=== PATIENT | female | born 1965 | race Caucasian/White ===

== ENCOUNTER 2020-12-29 18:36 | Outpatient (CLI) | payer MEDICARE, MEDICAID, SELFPAY ==
[2020-12-29 19:36] LABS: NT Pro B Type Natriuretic Pept 105 pg/mL (0-125)
== END 2020-12-29 18:37 | disposition home or self-care (01) ==
PROVIDERS: PCP Family Medicine; Visit Provider Nurse Practitioner
DX: R06.00 Dyspnea, unspecified (principal)
CPT/HCPCS: 36415; 83880

== ENCOUNTER → 2021-03-16 12:54 | Outpatient (BNVA) | payer MEDICARE, MEDICAID, SELFPAY | PROVIDERS: PCP Family Medicine; Visit Provider Specialist | DX: R20.0 Anesthesia of skin (principal); R20.2 Paresthesia of skin; M79.621 Pain in right upper arm; F17.200 Nicotine dependence, unspecified, uncomplicated | CPT/HCPCS: 95908 ==

== ENCOUNTER → 2021-04-05 14:56 | Outpatient (BNVA) | payer MEDICARE, MEDICAID, SELFPAY | PROVIDERS: PCP Family Medicine; Referring Provider Family Medicine; Visit Provider Orthopaedic Surgery | DX: R52 Pain, unspecified (principal); M75.21 Bicipital tendinitis, right shoulder | CPT/HCPCS: 73080 ==

== ENCOUNTER 2021-06-06 07:52 | Outpatient (CLI) | payer MEDICARE, MEDICAID, SELFPAY ==
--- NOTE | 2021-06-06 07:58 | MR_ITS ---
WS: [id number] MRI RIGHT ELBOW WITHOUT GADOLINIUM ENHANCEMENT. INDICATION: Pain in elbow. Burning sensation. TECHNIQUE: Coronal T1 PD and STIR imaging. Sagittal PD imaging. Axial T1 and T2 and 3-D FSPGR FINDINGS: Normal anatomic alignment. No acute fractures. Normal radial head and neck. No significant joint effusion. Distal biceps tendon is intact. Increased T2 signal abnormality in the distal biceps tendon at the radial tuberosity consistent with tendinopathy. Normal common flexor and common extenso r tendon complexes. Normal collateral ligaments. No other significant findings. MR/MR elbow RT wo con* [id number] IMPRESSION: 1. Normal anatomic alignment. No acute fractures. No significant joint effusio n. 2. Tendinopathy within distal biceps tendon with increased T2 signal abnormali ty distally at the radial tuberosity. Biceps tendon appears intact. 3. Common extensor and common flexor tendon origins appear intact. Normal richard ateral ligaments. 4. No other significant findings.
== END 2021-06-06 07:53 | disposition home or self-care (01) ==
LOC: RADSHAW 07:57
PROVIDERS: PCP Family Medicine; Visit Provider Orthopaedic Surgery
DX: M75.21 Bicipital tendinitis, right shoulder (principal)
CPT/HCPCS: 73221

== ENCOUNTER 2022-06-29 12:12 | Outpatient (CLI) | payer MEDICARE, MEDICAID, SELFPAY ==
--- NOTE | 2022-06-29 | USCV_ITS ---
Mercy Fermin Age: 56 Gender: F : 1965 Exam Date: 06/29/2022 12:41 Ordering Phys: Mark Anthony Akbar MD Technologist: Dean Banks [place]am [place] [facility] [place]ication: DYSPNEA ON MINIMAL EXERTION BP: 140 / 90 HR: 78 Rhythm: Sinus Technical Quality: Technically difficult study MEASUREMENTS (Male / Female) Normal Values 2D ECHO LV Diastolic Diameter PLAX 3.9 cm 4.2 - 5.9 / 3.9 - 5.3 cm LV Systolic Diameter PLAX 2.4 cm IVS Diastolic Thickness 0.8 cm 0.6 - 1.0 / 0.6 - 0.9 cm IVS Systolic Thickness 1.4 cm LVPW Diastolic Thickness 1.3 cm 0.6 - 1.0 / 0.6 - 0.9 cm LVPW Systolic Thickness 1.3 cm LVOT Diameter 2.0 cm LV Ejection Fraction 2D Teich 69.1 % LV Ejection Fraction MOD 2C 67.2 % LV Ejection Fraction 2C AL 73.7 % LA Diameter 3.1 cm LA Width 2.5 cm LA Height 3.8 cm RA Width 3.0 cm RA Height 4.0 cm Aorta at Sinotubular Diameter 2.5 cm IVC Diameter 1.4 cm M-MODE Aortic Annulus Diameter 2.9 cm LA Ao Ratio MM 1.1 MV E Point Septal Separation 0.6 cm DOPPLER AV Peak Velocity 97.3 cm/s LVOT Peak Velocity 91.0 cm/s AV Area Cont Eq vti 2.9 cm squared AV Area Cont Eq pk 3.0 cm squared MV Peak Velocity 94.0 cm/s MV Area PHT 3.9 cm squared Mitral E to A Ratio 0.8 MV E' Velocity 36.5 cm/s Mitral E to MV E' Ratio 12.9 Mitral E to LV E' Lateral Ratio 13.7 Mitral E to LV E' Septal Ratio 12.2 Right Atrial Pressure 3.0 mmHg PV Peak Velocity 56.0 cm/s RV Acceleration Time 0.1 s RV Ejection Time 0.3 s RV AcT/ET 0.4 FINDINGS Left Ventricle Normal left ventricular size and systolic function, EF 65 %. No regional wall motion abnormalities. Grade I/IV diastolic dysfunction (abnormal relaxation filling pattern), normal to mildly elevated filling pressures. Mild left ventricular hypertrophy. Right Ventricle The right ventricle is normal in size and function. Right Atrium The right atrium is normal in size. Left Atrium The left atrium is normal in size. Mitral Valve No gross abnormalities noted Aortic Valve No gross abnormalities noted Tricuspid Valve No gross abnormalities noted Pulmonic Valve Pulmonic valve not well visualized. Pericardium Normal pericardium without effusion. Aorta Normal aortic annulus size. IVC Normal inferior vena cava. CONCLUSIONS Normal left ventricular size and systolic function, EF 65 %. No regional wall motion abnormalities. Grade I/IV diastolic dysfunction (abnormal relaxation filling pattern), normal to mildly elevated filling pressures. Mild left ventricular hypertrophy. Normal cardiac chamber sizes There is no pericardial effusion. There are no intracardiac masses. Technically difficult study because of the poor ultrasonic window. No similar previous studies are available for comparison Dr Sergio Michel MD FAC (Electronically Signed) Final Date: 30 June 2022 20:33 S
== END 2022-06-29 12:13 | disposition home or self-care (01) ==
LOC: RAD 12:13
PROVIDERS: PCP Family Medicine; Visit Provider Family Medicine
DX: R06.09 Other forms of dyspnea (principal)
CPT/HCPCS: 93306

== ENCOUNTER → 2022-08-16 15:20 | Outpatient (BNVA) | payer MEDICARE, MEDICAID, SELFPAY | PROVIDERS: PCP Family Medicine; Visit Provider Internal Medicine Pulmonary Disease | DX: J44.9 Chronic obstructive pulmonary disease, unspecified; R06.09 Other forms of dyspnea; R06.02 Shortness of breath; F17.210 Nicotine dependence, cigarettes, uncomplicated; Z71.6 Tobacco abuse counseling | CPT/HCPCS: 36415; 82785; 85025; 86003; 99204 ==

== ENCOUNTER 2022-08-31 01:00 | Outpatient (CLI) | payer MEDICARE, MEDICAID, SELFPAY | END 2022-08-31 23:00 | disposition home or self-care (01) | LOC: RT 09-19 19:30 | PROVIDERS: PCP Family Medicine; Visit Provider Internal Medicine Pulmonary Disease | DX: J45.909 Unspecified asthma, uncomplicated (principal); R06.09 Other forms of dyspnea | CPT/HCPCS: 94060; 94618; 94729 ==

== ENCOUNTER 2022-08-31 08:33 | Outpatient (CLI) | payer MEDICARE, MEDICAID, SELFPAY ==
--- NOTE | 2022-08-31 09:45 | CT_ITS ---
WS: [id number] LDCT LUNG CANCER SCREENING TECHNIQUE: Noncontrast CT of the chest with coronal and sagittal reformatted images. CLINICAL INFORMATION: lung screening COMPARISON: None. DLP: 73.50 mGy.cm DIvol: Mean CTDIvol: 1.60 (mGy) All CT scans at [facility] use at least one of these dose optimization techniques: automat ed exposure control; mA and/or kV adjustment per patient size (includes targeted exams where dose is matched to clinical indication); or iterative reconstruction. FINDINGS: Normal caliber thoracic aorta. No mediastinal or hilar lymphadenopathy. No axillary lymphadenopathy. Cholelithiasis. Adrenal glands are normal. Normal GE junction. Small subpleural nodule RIGHT lower lobe medially measuring [address]/CT lung screening [id number] IMPRESSION: LUNG-RADS: 2-Benign Appearance or Behavior FOLLOW UP: 12 Month: Continue annual screening with LDCT
== END 2022-08-31 08:34 | disposition home or self-care (01) ==
LOC: RT 08:34
PROVIDERS: PCP Family Medicine; Visit Provider Internal Medicine Pulmonary Disease
DX: F17.210 Nicotine dependence, cigarettes, uncomplicated (principal); J44.9 Chronic obstructive pulmonary disease, unspecified
CPT/HCPCS: 71271; 94618; J7613

== ENCOUNTER → 2022-10-23 11:32 | Outpatient (BNVA) | payer MEDICARE, MEDICAID, SELFPAY | PROVIDERS: PCP Family Medicine; Visit Provider Internal Medicine Pulmonary Disease | DX: J45.909 Unspecified asthma, uncomplicated (principal); J44.9 Chronic obstructive pulmonary disease, unspecified; Z71.6 Tobacco abuse counseling; F17.210 Nicotine dependence, cigarettes, uncomplicated | CPT/HCPCS: 99214 ==

== ENCOUNTER 2022-11-13 11:30 | Outpatient (CLI) | payer MEDICARE, MEDICAID, SELFPAY | END 2022-11-13 11:31 | disposition home or self-care (01) | LOC: SLEEP 11-14 17:10 | PROVIDERS: PCP Family Medicine; Visit Provider Internal Medicine Pulmonary Disease | DX: G47.33 Obstructive sleep apnea (adult) (pediatric) (principal) | CPT/HCPCS: 94762 ==

== ENCOUNTER 2023-08-28 13:55 | Inpatient (IN) | payer MEDICARE, MEDICAID, SELFPAY ==
[2023-08-28] VITALS (7 sets, daily range): BP systolic 129–155; BP diastolic 71–90; PULSE 87–115; RESP 16–22; TEMP 36.6–38.5; O2SAT 87–96; BMI 37.8
--- NOTE | 2023-08-28 14:19 | XRR_ITS ---
PROCEDURE INFORMATION: Exam: XR Chest Exam date and time: 08/28/2023 2:43 PM Age: 57 years old Clinical indication: Cough and fever and shortness of breath; Additional info: Cough, fever, SOB TECHNIQUE: Imaging protocol: Radiologic exam of the chest. Views: 1 view. COMPARISON: CT lung screening [id number] 08/31/2022 9:24 AM FINDINGS: Lungs: See Heart/Mediastinum finding. Pleural spaces: Unremarkable. No pleural effusion. No pneumothorax. Heart/Mediastinum: Heart appears mildly enlarged on this single view chest exam. There is interval development of ill-defined patchy infiltrate right lower lobe likely secondary to pneumonia. Left lung field remains aerated and clear. Bones/joints: Unremarkable for age. XR/XR chest 1V portable [id number] IMPRESSION: Mild cardiomegaly with patchy right lower lobe infiltrate likely secondary to pneumonia.
--- NOTE | 2023-08-28 14:19 | ECG_ITS ---
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 Measurements Intervals [place] Rate: 111 P: 65 [place]: 155 QRS: 68 QRSD: 92 T: 68 QT: 293 QTc: 399 Interpretive Statements SINUS TACHYCARDIA ABNORMAL RHYTHM ECG No previous ECG available for comparison Electronically Signed On 08-28-2023 21:42:36 PI[employer]O [employer]CH[employer] by Sergio Michel M.D. [email or web address]
--- NOTE | 2023-08-28 14:31 | ED_ITS ---
HPI - SOB/Dyspnea 2 General: Chief Complaint: Shortness of Breath/Dyspnea Stated Complaint: fever, unable to urinate, abd/back pain SOB Time Seen by Provider: 08/28/23 14:17 History of Present Illness: HPI Narrative: 57-year-old female presents the emergenc y department complaining of fever, shortness of breath, wheezing, runny nose, congestion, headache, body aches, lack of appetite, dehydration, lightheadedness with standing. Patient is a longtime smoker with a history of asthma; she is supposed to be on Trelegy and albuterol but states she is out of both of them. Patient reports subjective fever but has not measured. On arrival her temperature was 97.8 degrees but she had just been sucking on an ice cube. I rechecked her temperature axillary because she felt very warm and it was 101.3 degrees. Patient denies any GI symptoms, urinary symptoms, rashes. Associated symptoms: Deny abdominal pain, chest pain, extremity pain, nausea, syncope or vomiting Review of Systems 2 General: Reports: 10 or more systems reviewed and unremarkable except in HPI and below Eyes: Denies: change in vision ENMT: Denies: throat pain Card: Denies: chest pain, edema or syncope GI: Denies: abdominal pain, nausea, vomiting or diarrhea : Denies: flank pain, dysuria or urinary frequency Musc: Denies: neck pain, back pain, extremity pain or extremity swelling Skin/Breast: Denies: rash or erythema Neuro: Denies: headache(s), numbness in extremities, weakness in extremities or lack of coordination PFSH ED 2 PFSH: Medical History (Updated 08/28/23 @ 17:15 by Boris Solis MD) Smoker COPD (chronic obstructive pulmonary disease) Asthma Biceps tendinitis of right upper extremity Numbness and tingling in right hand Surgical History (Updated 08/28/23 @ 17:10 by Ruy Villafuerte MD) H/O: hysterectomy Hx of tonsillectomy Social History Smoking and tobacco/nicotine status: current every day tobacco/nicotine user cigarettes Packs smoked per day: 1.5 Years cigarettes smoked: 35 [ Other cigarette details: Started at age 21] Physical Exam 2 Const: COMMON NORMALS: no limitations, alert and well nourished EXAM LIMITATIONS: no altered mental status HENMT: COMMON NORMALS: normocephalic, atraumatic and external ears normal H EAD & SCALP: normocephalic and atraumatic EXTERNAL EAR: Yes external ears normal MOUTH: no muffled voice OTHER: Nasal congestion and rhinorrhea Eye: COMMON NORMALS: EOMs intact bilaterally, conjunctivae normal and no scleral icterus CONJUNCTIVA: Yes conjunctivae normal Neck/C-Spine: COMMON NORMALS: no JVD GENERAL: Yes normal visual inspection and Yes trachea midline Resp: OTHER: Mild tachypnea, wheezes, few rales Cardio: COMMON NORMALS: no JVD and regular rhythm RATE: tachycardic R HYTHM: regular rhythm GI: COMMON NORMALS: Soft to palpation and non-tender PALPATION: Yes Soft to palpation and No Guarding due to palpation present (GI) Extremity: COMMON NORMALS: normal to inspection Neuro: COMMON NORMALS: moves all extremities, no focal motor deficits and no sensory deficits noted SENSORIUM/ORIENTATION: Yes alert SPEECH: speech normal Psych: COMMON NORMALS: mental status grossly normal, Normal thought process present, cooperative, normal affect and speech normal SPEECH: Yes normal speech THOUGHT PROCESS: Normal thought process present Skin: COMMON NORMALS: turgor normal and no jaundice GENERAL SKIN EXAM: t urgor normal OTHER: Small abrasion on her chin. No signs of infection. No rashes. Skin is warm to the touch Course 2 Vital Signs: Vital signs: Vital Signs Temperature 100.0 F H 08/28/23 16:32 Pulse Rate 95 08/28/23 16:32 Respiratory Rate 16 08/28/23 16:32 Blood Pressure 149/71 08/28/23 16:32 Pulse Oximetry 87 L 08/28/23 16:54 Oxygen Delivery Me thod Nasal Cannula 08/28/23 16:32 Oxygen Flow Rate 2 08/28/23 16:54 MDM - SOB/Dyspnea Medical Decision Making Patient presents with acute febrile respiratory illness. She does have multiple sick contacts. She has lost her taste. Considerations include bacterial versus viral etiology. Less likely fungal. The patient is out of her bronchodilators. I may give her medication for her fever, IV fluids, DuoNeb, methylprednisolone, and send a respiratory panel. Patient is supposed to be on 2 L of oxygen at all times but does not use it and never has. She says that she does not ever remember qualifying for it. According to the chart, she did a 6-minute walk test and qualified for 2 L/min. UPDATE: Enterovirus positive (cause vs incidental?) RLL infiltrate WBC quite elevated Patient dropped to 83% while I was in room. She needs oxygen supplementation. Right now she needs 3LPM She isn't wearing any oxygen at home (though see note above about past qualification). Put on rocephin/doxy for admission. Discussed with Dr Barker for admission. Lab Data 08/28/23 15:10 08/28/23 15:10 Labs/Radiology: Radiology Impressions Chest X-Ray 08/28/23 14:19 IMPRESSION: Mild cardiomegaly with patchy right lower lobe infiltrate likely secondary to pneumonia. Laboratory Results WBC 16.84 10^3/uL (3.29-11.43) H 08/28/23 15:10 RBC 5.24 10^6/uL (3.85-5.65) 08/28/23 15:10 Hgb 15.70 g/dL (11.27-16.99) 08/28/23 15:10 Hct 48.3 % (36-47) H 08/28/23 15:10 MCV 92.2 fl (85-98) 08/28/23 15:10 MCH 30.0 pg (27-33) 08/28/23 15:10 MCHC 32.5 g/dL (30-55) 08/28/23 15:10 RDW 12.4 % (12.1-15.1) 08/28/23 15:10 Plt Count 251 10^3/cmm (157-399) 08/28/23 15:10 MPV 9.9 fL (7.4-10.4) 08/28/23 15:10 Neut % (Auto) 80.9 % 08/28/23 15:10 Lymph % (Auto) 13.2 % 08/28/23 15:10 [place] % (Auto) 5.2 % 08/28/23 15:10 Eos % (Auto) 0.1 % 08/28/23 15:10 Baso % (Auto) 0.3 % 08/28/23 15:10 Neut # (Auto) 13.63 10^3/uL (1.8-7.7) H 08/28/23 15:10 Lymph # (Auto) 2.2 10^3/uL (0.8-4.8) 08/28/23 15:10 [place] # (Auto) 0.9 10^3/uL (0.2-0.9) 08/28/23 15:10 Eos # (Auto) 0.0 10^3/uL (0.0-0.8) 08/28/23 15:10 Baso # (Auto) 0.1 10^3/uL (0.0-0.1) 08/28/23 15:10 Nucleated RBC % (auto) 0 % 08/28/23 15:10 Nucleated RBCs # 0.0 /100WBC 08/28/23 15:10 Sodium 132 mmol/L (136-145) L 08/28/23 15:10 Potassium 4.2 mmol/L (3.5-5.1) 08/28/23 15:10 Chloride 96 mmol/L (98-107) L 08/28/23 15:10 Carbon Dioxide 26 mmol/L (22-29) 08/28/23 15:10 Anion Gap 14.2 (5-19) 08/28/23 15:10 BUN 10 mg/dL (6-20) 08/28/23 15:10 Creatinine 0.8 mg/dL (0.5-0.9) 08/28/23 15:10 GFR Calculation 74.2 mL/min (90-130) L 08/28/23 15:10 Glucose 124 mg/dL (65-115) H 08/28/23 15:10 Calculated Osmolality 274 mOsm/kg (285-295) L 08/28/23 15:10 Lactic Acid 0.9 mmol/L (0.5-2.2) 08/28/23 15:10 Calcium 9.5 mg/dL (8.5-10.5) 08/28/23 15:10 Magnesium 1.9 mg/dL (1.7-2.3) 08/28/23 15:10 Total Bilirubin 1.2 mg/dL (0.15-1.2) 08/28/23 15:10 AST 35 U/L (0-32) H 08/28/23 15:10 ALT 37 U/L (0-33) H 08/28/23 15:10 Alkaline Phosphatase 138 U/L (35-105) H 08/28/23 15:10 Total Protein 7.8 g/dL (6.6-8.7) 08/28/23 15:10 Albumin 3.5 g/dL (3.5-5.2) 08/28/23 15:10 Globulin 4.3 g/dL (1.3-4.6) 08/28/23 15:10 Adenovirus (PCR) Not detected (NOT DETECT) 08/28/23 14:45 C. pneumoniae DNA (PCR) Not detected (NOT DETECT) 08/28/23 14:45 Coronavirus 229E (PCR) Not detected (NOT DETECT) 08/28/23 14:45 Human Metapneumovir PCR Not detected (NOT DETECT) 08/28/23 14:45 Influenza A (H1) PCR Not detected (NOT DETECT) 08/28/23 14:45 Influ A (H1/09) PCR Not detected (NOT DETECT) 08/28/23 14:45 Influenza A (H3) PCR Not detected (NOT DETECT) 08/28/23 14:45 Influenza Type A (PCR) Not detected (NOT DETECT) 08/28/23 14:45 Influenza Type B (PCR) Not detected (NOT DETECT) 08/28/23 14:45 M. pneumoniae (PCR) Not detected (NOT DETECT) 08/28/23 14:45 Parainfluenza 1 (PCR) Not detected (NOT DETECT) 08/28/23 14:45 Parainfluenza 2 (PCR) Not detected (NOT DETECT) 08/28/23 14:45 Parainfluenza 3 (PCR) Not detected (NOT DETECT) 08/28/23 14:45 Parainfluenza 4 (PCR) Not detected (NOT DETECT) 08/28/23 14:45 RSV Type A (PCR) Not detected (NOT DETECT) 08/28/23 14:45 RSV Type B (PCR) Not detected (NOT DETECT) 08/28/23 14:45 Entero/Rhino (PCR) Detected (NOT DETECT) A 08/28/23 14:45 SARS-CoV-2 (PCR) Not detected (NOT DETECT) 08/28/23 14:45 All radiology interpretation(s) finalized by discharge ED provider radiology interpretation(s): CXR RLL infiltrate EKG Data EKG 1: Interpretation: Sinus tachycardia, rate 111, normal axis, normal intervals, no concerning ST segment elevations or depressions. No ectopy Discharge Plan Discharge Patient Disposition: Placed in Observation Clinical Impression: Acute respiratory failure with hypoxia, Right lower lobe pneumonia, Smoker Coding Level of Care Code ED Bedspread Inspector for Jcaklyn Dove
[2023-08-28] MEDS: acetaminophen 500 mg Tablet 1000 MG PO (14:48)
[2023-08-28] MEDS: methylPREDNISolone sod succ 125 mg/2 mL INJ IV (15:10)
[2023-08-28] MEDS: sodium chloride 0.9% 1,000 ML 999 ML IV (15:10)
[2023-08-28 15:18] LABS: Basophils # 0.1 10^3/uL (0.0-0.1); Basophils % 0.3 %; Eosinophils % 0.1 %; Hematocrit 48.3 % (36-47); Lymphocytes # 2.2 10^3/uL (0.8-4.8); Lymphocytes % 13.2 %; Mean Corpuscular HGB Conc 32.5 g/dL (30-55); Mean Corpuscular Volume 92.2 fl (85-98); Mean Platelet Volume 9.9 fL (7.4-10.4); Monocytes # 0.9 10^3/uL (0.2-0.9); Monocytes % 5.2 %; Neutrophils # 13.63 10^3/uL (1.8-7.7); Neutrophils % 80.9 %; Nucleated Red Blood Cells % 0 %; Platelet Count 251 10^3/cmm (157-399); Red Blood Count 5.24 10^6/uL (3.85-5.65); Red Cell Distribution Width 12.4 % (12.1-15.1); White Blood Count 16.84 10^3/uL (3.29-11.43)
[2023-08-28 15:36] LABS: Alanine Aminotransferase 37 U/L (0-33); Albumin Level 3.5 g/dL (3.5-5.2); Alkaline Phosphatase 138 U/L (35-105); Anion Gap 14.2 (5-19); Aspartate Amino Transferase 35 U/L (0-32); Blood Urea Nitrogen 10 mg/dL (6-20); Calcium 9.5 mg/dL (8.5-10.5); Carbon Dioxide 26 mmol/L (22-29); Chloride 96 mmol/L (98-107); Creatinine Clr Calc Pharmacy 90.1623; Globulin 4.3 g/dL (1.3-4.6); Glomerular Filtration Rate 74.2 mL/min (90-130); Glucose 124 mg/dL (65-115); Magnesium 1.9 mg/dL (1.7-2.3); Osmolality Calculated 274 mOsm/kg (285-295); Potassium 4.2 mmol/L (3.5-5.1); Sodium 132 mmol/L (136-145); Total Bilirubin 1.2 mg/dL (0.15-1.2); Total Protein 7.8 g/dL (6.6-8.7)
[2023-08-28 15:37] LABS: Lactic Sepsis W/Reflex 0.9 mmol/L (0.5-2.2)
[2023-08-28] MEDS: diphenhydrAMINE 50 mg/mL SDV 1mL 25 MG IVP (16:01)
[2023-08-28] MEDS: cefTRIAXone 1,000 MG in sodium chloride 0.9% (plus) 50 ML 100 MG IV (16:02)
--- NOTE | 2023-08-28 16:25 | PC.NURSE ---
Pt c/o severe itching and redness above zithromax infusion site. Infusion stopped, Dr Solis informed.
[2023-08-28] MEDS: azithromycin 500 MG in sodium chloride 0.9% 250 ML 250 MG IV (16:30)
[2023-08-28 16:40] LABS: Adenovirus Not Detected (NOT DETECT); Chlamydia Pneumoniae Not Detected (NOT DETECT); Coronavirus 229E,HKU1,NL63,OC4 Not Detected (NOT DETECT); Human Metapneumovirus Not Detected (NOT DETECT); Human Rhinovirus/Enterovirus Detected (NOT DETECT); Influenza A Not Detected (NOT DETECT); Influenza A H1 Not Detected (NOT DETECT); Influenza A H1-2009 Not Detected (NOT DETECT); Influenza A H3 Not Detected (NOT DETECT); Influenza B Not Detected (NOT DETECT); Mycoplasma Pneumoniae Not Detected (NOT DETECT); Parainfluenza Virus Type 1 Not Detected (NOT DETECT); Parainfluenza Virus Type 2 Not Detected (NOT DETECT); Parainfluenza Virus Type 3 Not Detected (NOT DETECT); Parainfluenza Virus Type 4 Not Detected (NOT DETECT); Respiratory Syncytial Virus A Not Detected (NOT DETECT); Respiratory Syncytial Virus B Not Detected (NOT DETECT); SARS-COV-2 Not Detected (NOT DETECT)
--- NOTE | 2023-08-28 17:07 | USCV_ITS ---
Mercy Fermin Age: 57 Gender: F : 1965 Exam Date: 08/28/2023 19:16 Ordering Phys: Ruy Villafuerte MD Technologist: ALEJANDRO [place]am Location: [facility] [place] Indication: cardiomegaly, fever, COVID, SOB, long-term smoker continues smoking, asthma. No history of cardiac intervention per pt BP: 129 / 86 HR: 78 Rhythm: Sinus Technical Quality: Adequate MEASUREMENTS (Male / Female) Normal Values 2D ECHO LVOT Diameter 2.3 cm LV Ejection Fraction MOD 2C 73.3 % LV Ejection Fraction 2C AL 76.7 % LA Diameter 3.7 cm LA Width 3.4 cm LA Height 4.8 cm RA Width 2.2 cm RA Height 4.2 cm Aorta at Sinotubular Diameter 3.0 cm IVC Diameter 1.8 cm M-MODE Aortic Annulus Diameter 3.4 cm LA Ao Ratio MM 1.0 DOPPLER AV Peak Velocity 134.0 cm/s LVOT Peak Velocity 131.0 cm/s AV Area Cont Eq vti 4.9 cm squared AV Area Cont Eq pk 4.0 cm squared MV Peak Velocity 93.0 cm/s MV Area PHT 1.8 cm squared Mitral E to A Ratio 0.8 MV E' Velocity 45.5 cm/s Mitral E to MV E' Ratio 10.4 Mitral E to LV E' Lateral Ratio 8.2 Mitral E to LV E' Septal Ratio 14.3 TV Peak E Velocity 33.0 cm/s PV Peak Velocity 109.0 cm/s RV Acceleration Time 0.1 s RV Ejection Time 0.3 s RV AcT/ET 0.4 FINDINGS Left Ventricle Left ventricle is normal in size. LV systolic function is normal with EF of 60 to 65%. No regional wall abnormalities are seen. Grade 1 diastolic dysfunction. Left ventricular hypertrophy seen Right Ventricle Normal in size and function Right Atrium Normal in size Left Atrium Normal in size Mitral Valve Structurally normal mitral valve. Mild mitral regurgitation. Aortic Valve Structurally normal aortic valve. No significant stenosis or regurgitation. Tricuspid Valve Mild tricuspid regurgitation. Insufficient TR jet to calculate RVSP. Pulmonic Valve Not well visualized Pericardium Normal Aorta Normal in size IVC Appears to be normal CONCLUSIONS LV systolic function is normal with EF of 60 to 65%. LVH noted Grade 1 diastolic dysfunction. Mild mitral regurgitation Mild tricuspid regurgitation Compared to prior echocardiogram from 2021, no significant changes are seen Deion Galarza MD (Electronically Signed) Final Date: 29 August 2023 19:09 S
--- NOTE | 2023-08-28 17:09 | P.HP_ITS ---
Providers/Chief Complaint 2 Primary Care Provider: Mark Anthony Akbar MD Chief Complaint: fever, unable to urinate, abd/back pain SOB History of Present Illness Mercy Fermin is a 57 year old female with past medical history of COPD on Trelegy, not on home oxygen, chronic smoker presents to the ER because of worsening cough, difficulty in breathing at rest and on exertion along with runny nose and malaise for the last 3 days. In the ER patient was found to be hypoxic requiring up to 3 L of oxygen supplementation hence hospitalist service was requested for further evaluation and management. Review of Systems 2 General: Reports: 10 or more systems reviewed and unremarkable except in HPI and below Const: Denies: fever(s), chills, body aches, change in appetite, change in weight, malaise, night sweats, diaphoresis, change in sleep pattern, daytime sleepiness or snoring Eyes: Denies: change in vision, blurry vision, photophobia, eye discomfort or eye discharge ENMT: Denies: throat pain, enlarged tonsils, hoarseness, mouth pain, oral sores, dry mouth, tinnitus, nasal congestion or post nasal drip Card: Denies: chest pain, palpitations, irregular heart rhythm, edema, swelling of feet/ankles, lightheadedness, syncope, pre-syncope, dyspnea on exertion, orthopnea, leg pain with exertion or acrocyanosis Resp: Denies: dyspnea, productive cough, non-productive cough, wheezing, stridor, pain on inspiration, change in phlegm color, hemoptysis or chest congestion GI: Denies: abdominal pain, nausea, vomiting, hematemesis, coffee ground emesis, dysphagia, heartburn, diarrhea, constipation, bloating, GI cramping, change in bowel habits, pain on defecation, hematochezia or melena : Denies: flank pain, dysuria, urinary frequency, urinary urgency, urinary hesitancy, nocturia or hematuria Musc: Denies: neck pain, back pain, extremity pain, joint pain, joint swelling, joint redness, joint stiffness or limited range of motion Neuro: Denies: headache(s), numbness in extremities, weakness in extremities, sensory changes, lack of coordination, difficulty walking, frequent falls, dizziness, vertigo, confusion, Slurred speech present, difficulty communicating thoughts or seizure-like activity Psych: Denies: anxiety, depression, mood swings, panic attacks, hopelessness or irritability Endo: Denies: polyuria, polydipsia, tired all the time, cold intolerance, excessive sweating, flushing or heat intolerance Gilbert/Lymph: Denies: easy bruising or easy bleeding All/Imm: Denies: tongue swelling, facial swelling or acute wheezing Medications/Allergies Home Medications Medication Instructions Recorded Confirmed Last Taken Type fluticasone fur. 100 mcg-umeclid 1 inh inhalation DAILY #60 ea 08/16/22 08/28/23 08/28/23 Rx 62.5 mcg-vilant 25 mcg inhalat.powder (Trelegy Ellipta) Allergies Allergy/AdvReac Type Severity Reaction Status Date / Time Penicillins Allergy ALGY-Hives Verified 08/28/23 14:04 PFSH Acute 2 PFSH: Medical History (Updated 08/28/23 @ 17:15 by Boris Solis MD) Smoker COPD (chronic obstructive pulmonary disease) Asthma Biceps tendinitis of right upper extremity Numbness and tingling in right hand Surgical History (Updated 08/28/23 @ 17:10 by Ruy Villafuerte MD) H/O: hysterectomy Hx of tonsillectomy Social History Smoking and tobacco/nicotine status: current every day tobacco/nicotine user cigarettes Packs smoked per day: 1.5 Years cigarettes smoked: 35 [ Other cigarette details: Started at age 21] Vitals/I&O/Wt Last Vital Signs Temp 100.0 F H 08/28/23 16:32 Pulse 95 08/28/23 16:32 Resp 16 08/28/23 16:32 BP 149/71 08/28/23 16:32 Pulse Ox 87 L 08/28/23 16:54 O2 Del Method Nasal Cannula 08/28/23 16:32 O2 Flow Rate 2 08/28/23 16:54 08/28/23 08/28/23 08/28/23 06:59 14:59 22:59 Intake Total 1083.333 / 1083.333 Balance 1083.333 / 1083.333 Weight last 48 hrs Weight 99.79 kg Physical Exam 2 Narrative: General: No acute distress, AO x3, NC oxygen supplementation, respiratory distress on minimal ambulation and taking of oxygen HEENT: PERRLA, pupils bilaterally equal and reactive Chest: Bilateral bronchial breath sounds all over lung [place] with occasional rhonchi and coarse crackles present mostly in right lower zone CVS: S1-S2 regular, no murmurs, no tachycardia, no gallops, no rubs Abdomen: Soft, nontender, no organomegaly, bowel sounds present, morbidly obese Neuro: No focal deficits, no facial deformity, AO x3, power 5/5 in all limbs Data 08/29/23 05:22 08/29/23 05:22 A&P Assessment and plan (1) Acute respiratory failure with hypoxia: Most likely in setting of COPD exacerbation along with right lower lobe pneumonia. Oxygen supplementation keeping saturation over 90%. Solu-Medrol 40 mg every 6 hourly, DuoNebs every 6 hour, Pulmicort twice daily. Check echocardiogram. (2) Right lower lobe pneumonia: Check sputum culture, urine Legionella, bacterial antigen, blood culture, MRSA swab, respiratory viral panel. Start on empiric antibiotics for community-acquired pneumonia with IV ceftriaxone and oral Levaquin. Patient had an allergic reaction to azithromycin while in the ER. Will de-escalate antibiotics as per culture results. (3) COPD (chronic obstructive pulmonary disease): (4) Asthma: (5) Smoker: Counseled in detail about smoking cessation. Nicotine patch. Plan CODE STATUS: Discussed in detail. Full code Regular diet Famotidine for PUD prophylaxis Lovenox for DVT prophylaxis. Attestations 2 Medical Necessity Statement*: Admit for more than 2 midnights for management of hypoxic respiratory failure in setting of right lower lobe pneumonia, COPD exacerbation Diagnoses Acute respiratory failure with hypoxia J96.01 Right lower lobe pneumonia J18.9 COPD (chronic obstructive pulmonary disease) J44.9 Asthma J45.909 Smoker F17.200
[2023-08-28 17:46] LABS: C Reactive Protein 303.5 mg/L (0.0-4.9)
[2023-08-28] MEDS: doxycycline 100 MG in sodium chloride 0.9% (plus) 100 ML IV (18:18)
[2023-08-28] MEDS: famotidine 20 mg Tablet PO (18:20)
[2023-08-28] MEDS: sodium chloride 0.9% 1,000 ML 75 ML IV (18:20)
[2023-08-28] MEDS: enoxaparin 40 mg/0.4 mL Syringe SUBCUT (18:20)
[2023-08-28 19:20] LABS: Iron 21 ug/dL (37-145); Percent Saturation 9.6 % (20-50); Thyroid Stimulating Hormone 2.07 uIU/mL (0.27-4.20); Total Iron Binding Capacity 218 mcg/dl; Unsaturated Iron Binding 197 ug/dL (112-347); Vitamin B12 274 pg/mL (232-1245)
[2023-08-28] MEDS: ipratropium-albuterol 3 mL Neb INHALATION (20:54)
[2023-08-28] MEDS: budesonide 0.5 mg/2 mL Neb INHALATION (20:54)
[2023-08-29] VITALS (15 sets, daily range): BP systolic 116–155; BP diastolic 68–87; PULSE 76–96; RESP 16–18; TEMP 36.4–37; O2SAT 91–98; BMI 36.0
[2023-08-29] MEDS: ipratropium-albuterol 3 mL Neb INHALATION ×4 (03:06→19:59)
[2023-08-29] MEDS: levoFLOXacin 750 mg Tablet PO (05:23)
[2023-08-29] MEDS: sodium chloride 0.9% 1,000 ML 75 ML IV ×2 (05:23→17:38)
[2023-08-29 05:49] LABS: Basophils % 0.1 %; Lymphocytes # 1.1 10^3/uL (0.8-4.8); Mean Corpuscular Volume 93.9 fl (85-98); Mean Platelet Volume 10.2 fL (7.4-10.4); Monocytes # 0.3 10^3/uL (0.2-0.9); Monocytes % 2.1 %; Neutrophils # 12.37 10^3/uL (1.8-7.7); Neutrophils % 89.3 %; Nucleated Red Blood Cells % 0 %; Platelet Count 255 10^3/cmm (157-399); Red Cell Distribution Width 12.4 % (12.1-15.1); White Blood Count 13.86 10^3/uL (3.29-11.43)
[2023-08-29 06:06] LABS: Estmated Average Glucose 120; Hemoglobin A1C 5.8 % (4.0-6.0)
[2023-08-29 06:13] LABS: Anion Gap 11.5 (5-19); Carbon Dioxide 28 mmol/L (22-29); Chloride 102 mmol/L (98-107); Globulin 4.2 g/dL (1.3-4.6); Phosphorus 3.3 mg/dL (2.5-4.5); Potassium 4.5 mmol/L (3.5-5.1); Sodium 137 mmol/L (136-145); Total Bilirubin 0.3 mg/dL (0.15-1.2); Total Protein 7.5 g/dL (6.6-8.7)
[2023-08-29 06:14] LABS: Chol HDL Ratio 4.37 mg/dL (0.0-4.40); Cholesterol 166 mg/dL (0-200); HDL Cholesterol 38 mg/dL (60-100); LDL Cholesterol Calculated 109 mg/dL (50-129); LDL HDL Ratio 2.87 RATIO (0.00-3.22); Triglycerides 93 mg/dL (0-150)
[2023-08-29 06:29] LABS: Blood Urea Nitrogen 13 mg/dL (6-20); Calcium 9.3 mg/dL (8.5-10.5); Glomerular Filtration Rate 86.6 mL/min (90-130); Magnesium 2.4 mg/dL (1.7-2.3)
[2023-08-29 06:31] LABS: Alanine Aminotransferase 43 U/L (0-33); Albumin Level 3.3 g/dL (3.5-5.2); Alkaline Phosphatase 160 U/L (35-105); Aspartate Amino Transferase 38 U/L (0-32); Glucose 197 mg/dL (65-115); Osmolality Calculated 290 mOsm/kg (285-295)
[2023-08-29] MEDS: famotidine 20 mg Tablet PO ×2 (08:32→17:37)
[2023-08-29] MEDS: budesonide 0.5 mg/2 mL Neb INHALATION ×2 (08:34→19:59)
--- NOTE | 2023-08-29 10:31 | PC.CHAP ---
Pastoral Care Encounter/Spiritual Assessment Type of Contact [] Declined bi technical lead visit [] Patient/Family/Request visit [] Outpatient visit [] Follow-up visit [] Physician referral [] Code/Alert [X] Routine visit [] Staff referral [] Actively dying [] Patient sleeping [] Family support [] [] Out of room [] Palliative care [] [] Receiving care in room [] Pre-surgical visit [] Trauma [] Long length of stay [] ICU visit [] Other: Relational/Emotional Strength [X] Patient feels connected with others/family/visitors/staff [] Distress [] Loneliness/isolation [] Abandonment Spirituality of Patient [] Person of Lynnette [] Attends Roman Catholic of their Lynnette [] Believes in Prayer [] Reads Bible or Jehovah'S Witness materials [] There are Spiritual issues to be addressed Color Mixer Interventions [X] Prayer [X] Active listening [] Non-anxious presence [] Spiritual/emotional support [] Crisis/trauma care [] Spiritual counseling [] Bereavement support [] Provided bereavement packet [] Provided Bible/devotional materials [] Provided toy/stuffed animal, coloring book to patient or family member [] Provided Communion [] Anointing/Lawn [] Salvation [] Completed spiritual assessment [] Other: Impact on Illness or Injury [] Angry [] Fearful [] Anxious [] Often cries [] Exhaustion [] Unable to work [] Unable to attend rastafarian [] Unable to walk/stand [] Unable to read [] Unable to drive [] Unable to eat/drink [] Unable to sleep [] Unable to be with family [] Patient intubated [] Other: Summary Time spent with patient 10 MIN
[2023-08-29] MEDS: cefTRIAXone 1,000 MG in sodium chloride 0.9% (plus) 50 ML 100 MG IV (11:28)
[2023-08-29 11:40] LABS: Add Urine Microscopic? YES; Bilirubin Urine Neg (Negative); Blood Urine 3+ (Negative); Glucose Urine UA 4+ (Normal); Ketones Urine Negative (Negative); Leukocyte Esterase Urine 2+ (Negative); Nitrate Urine Negative (Negative); Protein Urine 1+ (Negative); Specific Gravity, Urine 1.025 (1.005-1.030); Urine Appearance SL Hazy (CLEAR); Urine Color Dark Yellow (Yellow); Urobilinogen Urine 4 mg/dL (Negative); pH Urine 5 (5-7)
[2023-08-29 11:45] LABS: Add Urine Culture? Yes; Bacteria Urine TRACE /hpf; Fine Granular Casts Urine 0-4 /lpf; Hyaline Casts Urine 0-4 /lpf; Mucus Urine 1+ /hpf; RBC Urine 15-25 /hpf (0-2); Squamous Epithelial Cell Urine 0-4 /hpf (0-5); Trichomonas Urine 2+ /hpf; WBC Urine 15-25 /hpf (0-5)
--- NOTE | 2023-08-29 11:45 | PC.NURSE ---
Ceftrixone slowed to 50 mL/hr due to pt complaint of burning during infusion
--- NOTE | 2023-08-29 13:50 | P.PN_ITS ---
Subjective 2 Subjective: No acute events overnight. Requiring up to 3 L of oxygen supplementation saturating around 92 to 93%. States feeling slightly better. Still bothered by cough. Daughter at bedside. Vitals/I&O/Wt Last Vital Signs Temp 97.7 F 08/29/23 11:32 Pulse 95 08/29/23 11:32 Resp 18 08/29/23 11:32 BP 116/68 08/29/23 11:32 Pulse Ox 91 08/29/23 11:32 O2 Del Method Nasal Cannula 08/29/23 11:32 O2 Flow Rate 5 08/29/23 08:35 08/28/23 08/29/23 08/29/23 22:59 06:59 14:59 Intake Total 1400.000 / 1400.000 830.00 / 2230.000 530.000 / 530.000 Balance 1400.000 / 1400.000 830.00 / 2230.000 530.000 / 530.000 Weight last 48 hrs Weight 95.254 kg Weight 95.254 kg Weight 99.79 kg Physical Exam 2 Narrative: General: No acute distress, AO x3, NC oxygen supplementation, respiratory distress on minimal ambulation and taking of oxygen HEENT: PERRLA, pupils bilaterally equal and reactive Chest: Bilateral bronchial breath sounds all over lung [place] with occasional rhonchi and coarse crackles present mostly in right lower zone CVS: S1-S2 regular, no murmurs, no tachycardia, no gallops, no rubs Abdomen: Soft, nontender, no organomegaly, bowel sounds present, morbidly obese Neuro: No focal deficits, no facial deformity, AO x3, power 5/5 in all limbs Data 08/29/23 05:22 08/29/23 05:22 A&P Assessment and plan (1) Acute respiratory failure with hypoxia: Most likely in setting of COPD exacerbation along with right lower lobe pneumonia. Oxygen supplementation keeping saturation over 90%. Continue with Solu-Medrol 40 mg every 6 hourly, DuoNebs every 6 hour, Pulmicort twice daily. Echocardiogram pending. (2) Right lower lobe pneumonia: Pending sputum culture, urine Legionella, bacterial antigen, blood culture, MRSA swab. Respiratory viral panel positive for rhinovirus infection. Start on empiric antibiotics for community-acquired pneumonia with IV ceftriaxone and oral Levaquin. Patient had an allergic reaction to azithromycin while in the ER. Will de-escalate antibiotics as per culture results. (3) COPD (chronic obstructive pulmonary disease): (4) Asthma: (5) Smoker: Counseled in detail about smoking cessation. Nicotine patch. Plan CODE STATUS: Discussed in detail. Full code Regular diet Famotidine for PUD prophylaxis Lovenox for DVT prophylaxis. Attestations 2 Medical Necessity Statement*: Requires further hospitalization for management of hypoxic respiratory failure in setting of community-acquired right-sided lower lobe pneumonia, COPD exacerbation in setting of rhinovirus infection Diagnoses Acute respiratory failure with hypoxia J96.01 Right lower lobe pneumonia J18.9 COPD (chronic obstructive pulmonary disease) J44.9 Asthma J45.909 Smoker F17.200
[2023-08-29] MEDS: methylPREDNISolone sod succ 40 mg/mL INJ IVP ×2 (14:50→21:39)
[2023-08-29] MEDS: benzonatate 100 mg Capsule 200 MG PO ×2 (14:50→21:39)
[2023-08-30] VITALS (9 sets, daily range): BP systolic 146–169; BP diastolic 88–93; PULSE 69–89; RESP 16–18; TEMP 36.3–37; O2SAT 86–98; BMI 37.3
[2023-08-30] MEDS: methylPREDNISolone sod succ 40 mg/mL INJ IVP ×3 (03:01→14:57)
[2023-08-30] MEDS: guaiFENesin-dextromethorphan UDC 10 mL 5 ML PO (03:09)
[2023-08-30 05:40] LABS: Basophils % 0.2 %; Hematocrit 44.7 % (36-47); Lymphocytes # 1.1 10^3/uL (0.8-4.8); Lymphocytes % 8.9 %; Mean Corpuscular HGB Conc 30.9 g/dL (30-55); Mean Corpuscular Hemoglobin 29.7 pg (27-33); Mean Corpuscular Volume 96.3 fl (85-98); Mean Platelet Volume 10.1 fL (7.4-10.4); Monocytes # 0.3 10^3/uL (0.2-0.9); Monocytes % 2.2 %; Neutrophils # 10.55 10^3/uL (1.8-7.7); Neutrophils % 87.3 %; Nucleated Red Blood Cells % 0 %; Platelet Count 278 10^3/cmm (157-399); Red Blood Count 4.64 10^6/uL (3.85-5.65); Red Cell Distribution Width 12.4 % (12.1-15.1); White Blood Count 12.07 10^3/uL (3.29-11.43)
[2023-08-30 06:10] LABS: Alanine Aminotransferase 63 U/L (0-33); Albumin Level 3.5 g/dL (3.5-5.2); Alkaline Phosphatase 127 U/L (35-105); Anion Gap 13.4 (5-19); Aspartate Amino Transferase 53 U/L (0-32); Blood Urea Nitrogen 16 mg/dL (6-20); Calcium 9.3 mg/dL (8.5-10.5); Carbon Dioxide 28 mmol/L (22-29); Chloride 104 mmol/L (98-107); Glomerular Filtration Rate 86.6 mL/min (90-130); Glucose 217 mg/dL (65-115); Osmolality Calculated 298 mOsm/kg (285-295); Potassium 5.4 mmol/L (3.5-5.1); Sodium 140 mmol/L (136-145); Total Bilirubin 0.2 mg/dL (0.15-1.2); Total Protein 6.5 g/dL (6.6-8.7)
[2023-08-30] MEDS: levoFLOXacin 750 mg Tablet PO (06:36)
[2023-08-30] MEDS: ipratropium-albuterol 3 mL Neb INHALATION (07:58)
[2023-08-30] MEDS: budesonide 0.5 mg/2 mL Neb INHALATION (07:59)
[2023-08-30] MEDS: sodium chloride 0.9% 1,000 ML 75 ML IV (10:54)
[2023-08-30] MEDS: benzonatate 100 mg Capsule 200 MG PO ×2 (10:55→14:57)
[2023-08-30] MEDS: famotidine 20 mg Tablet PO (10:56)
--- NOTE | 2023-08-30 11:02 | P.DS_ITS ---
Discharge Providers Date of Admission: 08/28/23 17:26 Date of Discharge: August 30, 2023 Attending Provider at Admission: Shiraz Wolfe MD Attending Provider at Discharge: Ruy Villafuerte MD Primary Care Provider: Mark Anthony Akbar MD Diagnoses at Discharge Discharge Diagnosis (1) Acute respiratory failure with hypoxia: Status: Acute (2) Right lower lobe pneumonia: Status: Acute (3) COPD (chronic obstructive pulmonary disease): Status: Acute (4) Asthma: Status: Acute (5) Smoker: Status: Acute Reason for Visit Reason for Visit: fever, unable to urinate, abd/back pain SOB Hospital Course Hospital Course Mercy Fermin is a 57 year old female with past medical history of COPD on Trelegy, not on home oxygen, chronic smoker presents to the ER because of worsening cough, difficulty in breathing at rest and on exertion along with runny nose and malaise for the last 3 days. In the ER patient was found to be hypoxic requiring up to 3 L of oxygen supplementation hence hospitalist service was requested for further evaluation and management. Patient was admitted for further evaluation and management of hypoxic respiratory failure in setting of COPD exacerbation and right lower lobe pneumonia. She was started on broad-spectrum antibiotics, nebulization treatment and IV steroids. Patient responded well to the treatment and her symptoms improved. During hospitalization she was found to have elevated blood pressures for which she has not started her antihypertensive. She is been discharged in hemodynamically stable condition on nebulization treatment with DuoNebs and Pulmicort, cefdinir for antibiotics and steroid taper. Home O2 evaluation was done prior to discharge. Physical Exam Narrative: General: No acute distress, AO x3, NC oxygen supplementation, HEENT: PERRLA, pupils bilaterally equal and reactive Chest: Bilateral bronchial breath sounds all over lung [place] with occasional rhonchi and coarse crackles present mostly in right lower zone CVS: S1-S2 regular, no murmurs, no tachycardia, no gallops, no rubs Abdomen: Soft, nontender, no organomegaly, bowel sounds present, morbidly obese Neuro: No focal deficits, no facial deformity, AO x3, power 5/5 in all limbs Discharge Data Studies Completed and Pending Completed Studies During Hospitalization Category Date Time Status XR chest 1V portable [id number] Stat Exams 08/28/23 14:19 Completed CV. echo complete* [id number] Routine Ultrasound 08/28/23 17:07 Completed Pending at discharge Category Date Time Status Blood Cultures ([facility]) Routine Lab 08/28/23 14:45 Received Blood Cultures ([facility]) Routine Lab 08/28/23 15:10 Received MRSA [Methicillin Resistant S.aureu] Routine Lab 08/28/23 17:08 Ordered Sputum Culture and Gram Stain Stat Lab 08/28/23 17:08 Uncollected Urine Culture Routine Lab 08/29/23 10:50 Results Radiology Impressions Chest X-Ray 08/28/23 14:19 IMPRESSION: Mild cardiomegaly with patchy right lower lobe infiltrate likely secondary to pneumonia. Echocardiogram CONCLUSIONS LV systolic function is normal with EF of 60 to 65%. LVH noted Grade 1 diastolic dysfunction. Mild mitral regurgitation Mild tricuspid regurgitation Compared to prior echocardiogram from 2021, no significant changes are seen Deion Galarza MD (Electronically Signed) Final Date: 29 August 2023 Microbiology 08/29/23 10:50 Urine,Clean Catch Urine Culture - Preliminary 08/29/23 10:50 Unknown Source Legionella Urinary Antigen - Final 08/29/23 10:50 Urine Kidney Bacterial Antigens - Final Laboratory Results WBC 12.07 10^3/uL (3.29-11.43) H 08/30/23 05:15 RBC 4.64 10^6/uL (3.85-5.65) 08/30/23 05:15 Hgb 13.80 g/dL (11.27-16.99) 08/30/23 05:15 Hct 44.7 % (36-47) 08/30/23 05:15 MCV 96.3 fl (85-98) 08/30/23 05:15 MCH 29.7 pg (27-33) 08/30/23 05:15 MCHC 30.9 g/dL (30-55) 08/30/23 05:15 RDW 12.4 % (12.1-15.1) 08/30/23 05:15 Plt Count 278 10^3/cmm (157-399) 08/30/23 05:15 MPV 10.1 fL (7.4-10.4) 08/30/23 05:15 Neut % (Auto) 87.3 % 08/30/23 05:15 Lymph % (Auto) 8.9 % 08/30/23 05:15 [place] % (Auto) 2.2 % 08/30/23 05:15 Eos % (Auto) 0.0 % 08/30/23 05:15 Baso % (Auto) 0.2 % 08/30/23 05:15 Neut # (Auto) 10.55 10^3/uL (1.8-7.7) H 08/30/23 05:15 Lymph # (Auto) 1.1 10^3/uL (0.8-4.8) 08/30/23 05:15 [place] # (Auto) 0.3 10^3/uL (0.2-0.9) 08/30/23 05:15 Eos # (Auto) 0.0 10^3/uL (0.0-0.8) 08/30/23 05:15 Baso # (Auto) 0.0 10^3/uL (0.0-0.1) 08/30/23 05:15 Nucleated RBC % (auto) 0 % 08/30/23 05:15 Nucleated RBCs # 0.0 /100WBC 08/30/23 05:15 Sodium 140 mmol/L (136-145) 08/30/23 05:15 Potassium 5.4 mmol/L (3.5-5.1) H 08/30/23 05:15 Chloride 104 mmol/L (98-107) 08/30/23 05:15 Carbon Dioxide 28 mmol/L (22-29) 08/30/23 05:15 Anion Gap 13.4 (5-19) 08/30/23 05:15 BUN 16 mg/dL (6-20) 08/30/23 05:15 Creatinine 0.7 mg/dL (0.5-0.9) 08/30/23 05:15 GFR Calculation 86.6 mL/min (90-130) L 08/30/23 05:15 Glucose 217 mg/dL (65-115) H 08/30/23 05:15 Estimat Average Glucose 120 08/29/23 05:22 Hemoglobin A1c 5.8 % (4.0-6.0) 08/29/23 05:22 Calculated Osmolality 298 mOsm/kg (285-295) H 08/30/23 05:15 Lactic Acid 0.9 mmol/L (0.5-2.2) 08/28/23 15:10 Calcium 9.3 mg/dL (8.5-10.5) 08/30/23 05:15 Phosphorus 3.3 mg/dL (2.5-4.5) 08/29/23 05:22 Magnesium 2.4 mg/dL (1.7-2.3) H 08/29/23 05:22 Iron 21 ug/dL (37-145) L 08/28/23 15:10 TIBC 218 mcg/dl 08/28/23 15:10 % Saturation 9.6 % (20-50) L 08/28/23 15:10 Unsat Iron Binding 197 ug/dL (112-347) 08/28/23 15:10 Total Bilirubin 0.2 mg/dL (0.15-1.2) 08/30/23 05:15 AST 53 U/L (0-32) H 08/30/23 05:15 ALT 63 U/L (0-33) H 08/30/23 05:15 Alkaline Phosphatase 127 U/L (35-105) H 08/30/23 05:15 C-Reactive Protein 303.5 mg/L (0.0-4.9) H 08/28/23 15:10 Total Protein 6.5 g/dL (6.6-8.7) L 08/30/23 05:15 Albumin 3.5 g/dL (3.5-5.2) 08/30/23 05:15 Globulin 3.0 g/dL (1.3-4.6) 08/30/23 05:15 Triglycerides 93 mg/dL (0-150) 08/29/23 05:22 Cholesterol 166 mg/dL (0-200) 08/29/23 05:22 LDL Cholesterol, Calc 109 mg/dL (50-129) 08/29/23 05:22 HDL Cholesterol 38 mg/dL (60-100) L 08/29/23 05:22 LDL/HDL Ratio 2.87 RATIO (0.00-3.22) 08/29/23 05:22 Cholesterol/HDL Ratio 4.37 mg/dL (0.0-4.40) 08/29/23 05:22 Vitamin B12 274 pg/mL (232-1245) 08/28/23 15:10 Folate 6.0 ng/mL (4.8-37.3) 08/29/23 05:22 Procalcitonin 0.10 ng/mL (0-0.5) 08/28/23 15:10 TSH 2.07 uIU/mL (0.27-4.20) 08/28/23 15:10 Urine Color Dark yellow (Yellow) 08/29/23 10:50 Urine Appearance Sl hazy (CLEAR) A 08/29/23 10:50 Urine pH 5 (5-7) 08/29/23 10:50 Ur Specific Ethel 1.025 (1.005-1.030) 08/29/23 10:50 Urine Protein 1+ (Negative) H 08/29/23 10:50 Urine Glucose (UA) 4+ (Normal) H 08/29/23 10:50 Urine Ketones Negative (Negative) 08/29/23 10:50 Urine Blood 3+ (Negative) H 08/29/23 10:50 Urine Nitrate Negative (Negative) 08/29/23 10:50 Urine Bilirubin Neg (Negative) 08/29/23 10:50 Urine Urobilinogen 4 mg/dL (Negative) H 08/29/23 10:50 Ur Leukocyte Esterase 2+ (Negative) H 08/29/23 10:50 Urine RBC 15-25 /hpf (0-2) H 08/29/23 10:50 Urine WBC 15-25 /hpf (0-5) H 08/29/23 10:50 Ur Squamous Epith Cells 0-4 /hpf (0-5) H 08/29/23 10:50 Amorphous Sediment Not Reportable 08/29/23 10:50 Urine Bacteria Trace /hpf (NONE) 08/29/23 10:50 Hyaline Casts 0-4 /lpf H 08/29/23 10:50 Fine Granular Casts 0-4 /lpf H 08/29/23 10:50 Urine Mucus 1+ /hpf 08/29/23 10:50 Urine Trichomonas 2+ /hpf H 08/29/23 10:50 Adenovirus (PCR) Not detected (NOT DETECT) 08/28/23 14:45 C. pneumoniae DNA (PCR) Not detected (NOT DETECT) 08/28/23 14:45 Coronavirus 229E (PCR) Not detected (NOT DETECT) 08/28/23 14:45 Human Metapneumovir PCR Not detected (NOT DETECT) 08/28/23 14:45 Influenza A (H1) PCR Not detected (NOT DETECT) 08/28/23 14:45 Influ A (H1/09) PCR Not detected (NOT DETECT) 08/28/23 14:45 Influenza A (H3) PCR Not detected (NOT DETECT) 08/28/23 14:45 Influenza Type A (PCR) Not detected (NOT DETECT) 08/28/23 14:45 Influenza Type B (PCR) Not detected (NOT DETECT) 08/28/23 14:45 M. pneumoniae (PCR) Not detected (NOT DETECT) 08/28/23 14:45 Parainfluenza 1 (PCR) Not detected (NOT DETECT) 08/28/23 14:45 Parainfluenza 2 (PCR) Not detected (NOT DETECT) 08/28/23 14:45 Parainfluenza 3 (PCR) Not detected (NOT DETECT) 08/28/23 14:45 Parainfluenza 4 (PCR) Not detected (NOT DETECT) 08/28/23 14:45 RSV Type A (PCR) Not detected (NOT DETECT) 08/28/23 14:45 RSV Type B (PCR) Not detected (NOT DETECT) 08/28/23 14:45 Entero/Rhino (PCR) Detected (NOT DETECT) A 08/28/23 14:45 SARS-CoV-2 (PCR) Not detected (NOT DETECT) 08/28/23 14:45 Vitals Last Vital Signs Temp 97.4 F L 08/30/23 07:55 Pulse 76 08/30/23 08:10 Resp 16 08/30/23 08:00 BP 169/88 08/30/23 07:55 Pulse Ox 94 08/30/23 08:00 O2 Del Method Nasal Cannula 08/30/23 08:00 O2 Flow Rate 2 08/30/23 08:00 Discharge Plan Discharge Patient Disposition: Home Condition: Stable Prescriptions: New famotidine 20 mg Tablet 20 mg PO BID Qty: 60 0RF benzonatate 100 mg Capsule 200 mg PO TID Qty: 30 0RF prednisone 10 mg tablet See Taper PO DIRECTED Qty: 42 0RF Taper: predniSONE 60-10 60 mg Daily for 2 Days and 0 Hour 50 mg Daily for 2 Days and 0 Hour 40 mg Daily for 2 Days and 0 Hour 30 mg Daily for 2 Days and 0 Hour 20 mg Daily for 2 Days and 0 Hour 10 mg Daily for 2 Days and 0 Hour Rx Instructions: see taper instructions ipratropium-albuterol 0.5 mg-3 mg(2.5 mg base)/3 mL solution for nebulization 3 ml inhalation TID Qty: 180 0RF Pulmicort 0.5 mg/2 mL suspension for nebulization 0.5 mg inhalation BID Qty: 60 0RF cefdinir 300 mg capsule 300 mg PO Q12H 10 Days Qty: 20 0RF amlodipine 10 mg tablet 10 mg PO DAILY Qty: 30 0RF Continued Trelegy Ellipta 100-62.5-25 mcg blister with device 1 inh inhalation DAILY Qty: 60 3RF Discharge Orders: Discharge Order (Routine); Ordered 08/30/23 Ordered By: Ruy Villafuerte Other Ambulatory Orders: DME: Oxygen (Order) Location: None Selected Ordered By: Ruy Villafuerte [place]: [facility] [place] [facility] [place] Mark Anthony Akbar MD [Primary Care Provider] - 09/05/23 3:00 pm Discharge Diet: Cardiac Discharge Activity: Resume usual activity and Increase activity as tolerated Patient Instructions: Prednisone (By mouth), Amlodipine (By mouth), Budesonide (By breathing), Ipratropium/Albuterol (By breathing), Cefdinir (By mouth), How to Stop Smoking (GEN), Using Oxygen at Home (GEN), Pneumonia (GEN), Opioid Safety, Pneumonia Stoplight Activity Restrictions/Additional Instructions: Please take steroid taper as prescribed. You will be on antibiotic called cefdinir for next 10 days. Use DuoNebs and Pulmicort which is the nebulizer medication going forward for next 2 to 3 weeks. Continue using Trelegy as before. Follow-up with a primary care provider within next 1 week. Please try to stop smoking at the earliest. Discharge Attestations Time Spent in Discharge Care*: greater than 30 min Specific Discharge Activities: educating patient, educating and/or supporting family/caregiver, discussing with pcp/other providers, discussing with leather case finisher/social workers/dc planners, documenting/other paperwork and evaluating patient/reviewing data Time Spent in Smoking Cessation: more than 10 minutes Status at Discharge: Cognitive status at discharge: cognitively intact , Behavioral status at discharge: cooperative , Functional status at discharge: independent ambulation , Overall status at discharge: patient is progressing back to baseline Quality Metrics Clinical Quality Measures [ No reported AMI, CVA or VTE this stay] Coding Level of Care Code 17670 Total time (in minutes) for Discharge: 60 Diagnoses Acute respiratory failure with hypoxia J96.01 Right lower lobe pneumonia J18.9 COPD (chronic obstructive pulmonary disease) J44.9 Asthma J45.909 Smoker F17.200
== END 2023-08-30 15:40 | disposition home or self-care (01) | DRG 189 ==
LOC: ER 17:15 → MEDSURG 17:43
PROVIDERS: Admitting Provider Internal Medicine; Emergency Provider Emergency Medicine; PCP Family Medicine; Visit Provider Student in an Organized Health Care Education/Training Program
DX: J96.01 Acute respiratory failure with hypoxia (principal); J18.9 Pneumonia, unspecified organism; J44.0 Chronic obstructive pulmonary disease with (acute) lower respiratory infection; J44.1 Chronic obstructive pulmonary disease with (acute) exacerbation; F17.210 Nicotine dependence, cigarettes, uncomplicated; B97.10 Unspecified enterovirus as the cause of diseases classified elsewhere; B97.89 Other viral agents as the cause of diseases classified elsewhere; Z99.81 Dependence on supplemental oxygen
CPT/HCPCS: 36415; 71045; 80053; 80061; 81001; 82607; 82746; 83036; 83540; 83550; 83605; 83735; 84100; 84145; 84443; 85025; 86140; 86403; 87040; 87086; 87449; 87486; 87581; 87633; 93005; 93306; 94640; 94664; 94760; 96365; 96367; 96372; 96375; 99285; J0456; J0696; J1200; J1650; J2920; J2930; J3490; J7030; J7050; J7626

== ENCOUNTER 2025-01-06 13:28 | Emergency (ER) | payer OTHER, MEDICAID, SELFPAY ==
--- NOTE | 2025-01-06 13:29 | XRR_ITS ---
PROCEDURE INFORMATION: Exam: XR Chest Exam date and time: 01/06/2025 1:34 PM Age: 59 years old Clinical indication: Pain; Angina pectoris; Additional info: Cp TECHNIQUE: Imaging protocol: Radiologic exam of the chest. Views: 1 view. Total images: 1 COMPARISON: CR XR chest 1V portable [id number] 08/28/2023 2:43 PM FINDINGS: Lungs: Unremarkable. No consolidation. Pleural spaces: Unremarkable. No pleural effusion. No pneumothorax. Heart/Mediastinum: Unremarkable. No cardiomegaly. Bones/joints: Unremarkable. XR/XR chest 1V portable [id number] IMPRESSION: No acute findings.
[2025-01-06 13:30] VITALS: BP 163/113; PULSE 90; RESP 23; TEMP 36.6; O2SAT 93; BMI 38.7
--- NOTE | 2025-01-06 13:33 | ED_ITS ---
HPI - Chest Pain 2 General: Chief Complaint: Chest Pain Stated Complaint: chest pain Time Seen by Provider: 01/06/25 13:29 Source: patient and EMS Mode of arrival: EMS Limitations: no limitations History of Present Illness: 59-year-old female who states that she h as been having some chest pain since yesterday. States it has been a pressure pain in the center of her chest has been ongoing. Did relieve with nitro does have a history of COPD is on oxygen at baseline is a smoker she denies any fever denies any radiation of her pain. Associated symptoms: Deny abdominal pain, dyspnea, fever(s), nausea or vomiting Related Data Home Medications ?Medication ?Instructions ?Recorded ?Confirmed amlodipine 10 mg tablet 10 mg PO DAILY PRN Blood Pre ssure 01/06/25 01/06/25 Allergies Allergy/AdvReac Type Severity Reaction Status Date / Time Penicillins Allergy ALGY-Hives Verified 08/28/23 14:04 Review of Systems 2 Const: Denies: fever(s), chills, body aches or change in appetite Eyes: Denies: eye discomfort ENMT: Denies: throat pain or dental pain Card: Reports: chest pain Resp: Denies: dyspnea GI: Denies: abdominal pain, nausea, vomiting or diarrhea Musc: Denies: neck pain or back pain Skin/Breast: Denies: rash Neuro: Denies: headache(s) PFSH ED 2 PFSH: Medical History Smoker COPD (chronic obstructive pulmonary disease) Asthma Biceps tendinitis of right upper extremity Numbness and tingling in right hand Surgical History H/O: hysterectomy Hx of tonsillectomy Social History Smoking and tobacco/nicotine status: current every day tobacco/nicotine user cigarettes Packs smoked per day: 1.5 Years cigarettes smoked: 35 [ Other cigarette details: Started at age 21] Physical Exam 2 Const: COMMON NORMALS: no acute distress, patient oriented x3 and healthy appearing HENMT: COMMON NORMALS: normocephalic and atraumatic HEAD & SCALP: n ormocephalic and atraumatic Eye: COMMON NORMALS: conjunctivae normal CONJUNCTIVA: Yes conjunctivae normal Neck/C-Spine: COMMON NORMALS: full ROM and supple Chest: COMMONS NORMALS: normal inspection of the chest Resp: COMMON NORMALS: normal respiratory effort, No retractions, No use of accessory muscles and clear to auscultation bilaterally AUSCULTATION: clear to auscultation bilaterally Cardio: COMMON NORMALS: regular rate, regular rhythm and No murmurs present (Cardio) RATE: regular rate RHYTHM: regular rhythm Extremity: COMMON NORMALS: normal to inspection and full ROM Neuro: COMMON NORMALS: patient oriented x3, moves all extremities and no focal motor deficits Psych: COMMON NORMALS: mental status grossly normal, Normal thought process present and cooperative THOUGHT PROCESS: Normal thought process present Skin: COMMON NORMALS: no rashes or lesions noted and no wounds GENERAL SKIN EXAM: no rashes or lesions noted Course 2 Vital Signs: Vital signs: Vital Signs Temperature 97.8 F 01/06/25 13:30 Pulse Rate 80 01/06/25 13:40 Respiratory Rate 23 H 01/06/25 13:30 Blood Pressure 151/76 01/06/25 14:35 Pulse Oximetry 91 01/06/25 13:40 Oxygen Delivery Me thod Room Air 01/06/25 13:40 MDM - Chest Pain Medical Decision Making Patient presents for chest pain atypical in nature she has been chest pain-free here initial repeat troponins are negative no signs of ACS no signs of pulmonary embolism or dissection she stable for discharge she has follow-up with PCP return if worsening. Medical Records I reviewed the patient's medical records. Lab Data I reviewed the patient's lab results. 01/06/25 13:05 01/06/25 13:05 Radiology Impressions Chest X-Ray 01/06/25 13:29 IMPRESSION: No acute findings. Laboratory Results WBC 8.09 10^3/uL (3.29-11.43) 01/06/25 13:05 RBC 4.83 10^6/uL (3.85-5.65) 01/06/25 13:05 Hgb 14.40 g/dL (11.27-16.99) 01/06/25 13:05 Hct 44.9 % (36-47) 01/06/25 13:05 MCV 93.0 fl (85-98) 01/06/25 13:05 MCH 29.8 pg (27-33) 01/06/25 13:05 MCHC 32.1 g/dL (30-55) 01/06/25 13:05 RDW 12.7 % (12.1-15.1) 01/06/25 13:05 Plt Count 268 10^3/cmm (157-399) 01/06/25 13:05 MPV 10.8 fL (7.4-10.4) H 01/06/25 13:05 Neut % (Auto) 48.7 % 01/06/25 13:05 Lymph % (Auto) 44.0 % 01/06/25 13:05 [place] % (Auto) 4.6 % 01/06/25 13:05 Eos % (Auto) 2.1 % 01/06/25 13:05 Baso % (Auto) 0.5 % 01/06/25 13:05 Neut # (Auto) 3.94 10^3/uL (1.8-7.7) 01/06/25 13:05 Lymph # (Auto) 3.6 10^3/uL (0.8-4.8) 01/06/25 13:05 [place] # (Auto) 0.4 10^3/uL (0.2-0.9) 01/06/25 13:05 Eos # (Auto) 0.2 10^3/uL (0.0-0.8) 01/06/25 13:05 Baso # (Auto) 0.0 10^3/uL (0.0-0.1) 01/06/25 13:05 Nucleated RBC % (auto) 0 % 01/06/25 13:05 Nucleated RBCs # 0.0 /100WBC 01/06/25 13:05 PT 11.80 SECONDS (12.1-14.9) L 01/06/25 13:05 INR 0.81 (0.8-1.2) 01/06/25 13:05 Sodium 139 mmol/L (136-145) 01/06/25 13:05 Potassium 4.7 mmol/L (3.5-5.1) 01/06/25 13:05 Chloride 100 mmol/L (98-107) 01/06/25 13:05 Carbon Dioxide 30 mmol/L (22-29) H 01/06/25 13:05 Anion Gap 13.7 (5-19) 01/06/25 13:05 BUN 12 mg/dL (6-20) 01/06/25 13:05 Creatinine 0.6 mg/dL (0.5-0.9) 01/06/25 13:05 GFR Calculation 102.7 mL/min (90-130) 01/06/25 13:05 Glucose 105 mg/dL (65-115) 01/06/25 13:05 Calculated Osmolality 288 mOsm/kg (285-295) 01/06/25 13:05 Calcium 9.2 mg/dL (8.5-10.5) 01/06/25 13:05 Total Bilirubin 0.3 mg/dL (0.15-1.2) 01/06/25 13:05 AST 18 U/L (0-32) 01/06/25 13:05 ALT 20 U/L (0-33) 01/06/25 13:05 Alkaline Phosphatase 94 U/L (35-105) 01/06/25 13:05 Troponin T Baseline < 6 ng/L (0-10) 01/06/25 13:05 Troponin T 120 Minute < 6.0 ng/L (0-10) 01/06/25 15:03 Delta Troponin T 0 ABS# (0-10) 01/06/25 15:03 Total Protein 7.1 g/dL (6.6-8.7) 01/06/25 13:05 Albumin 4.1 g/dL (3.5-5.2) 01/06/25 13:05 Globulin 3.0 g/dL (1.3-4.6) 01/06/25 13:05 Lipase 26 U/L (13-60) 01/06/25 13:05 All radiology interpretation(s) finalized by discharge EKG Data EKG 1: I personally reviewed and interpreted this EKG as follows: EKG interpretation date: 01/06/25 EKG interpretation time: 13:35 Interpretation: nsr hr 79no st elevation qrs 90 qtc 409 EKG 2: I personally reviewed and interpreted this EKG as follows: EKG interpretation date: 01/06/25 EKG interpretation time: 15:28 Interpretation: nsr hr [address] elevationqrs 93 qtc 410 Discharge Plan Discharge Patient Disposition: Home Clinical Impression: Chest pain Condition: Stable Prescriptions: No Action amlodipine 10 mg tablet 10 mg PO DAILY PRN (Reason: Blood Pressure) Discharge Orders: Discharge ED (Routine); Ordered 01/06/25 Ordered By: Emily Matamoros Referrals: Mark Anthony Akbar MD [Primary Care Provider, Family Practice] - 4-7 days Discharge Activity: Resume usual activity Patient Instructions: Chest Pain (ED) Print Language: Sudanese Coding Level of Care Code ED Instructional Material Director for Jacklyn Dove
--- NOTE | 2025-01-06 13:35 | ECG_ITS ---
[facility] Date: 2025-01-06 Pat Name: Mercy Fermin Department: Room: Gender: Female Photolithographer: : 1965 Requested By: Emily Matamoros Order Number: [id number] Yair MD: Sergio Michel M.D. Measurements Intervals [place] Rate: 79 P: 52 AK: 176 QRS: 61 QRSD: 90 T: 74 QT: 375 QTc: 430 Interpretive Statements SINUS RHYTHM Compared to ECG 08/28/2023 15:03:31 Sinus tachycardia no longer present Electronically Signed On 01-06-2025 17:40:57 CDT by Sergio Michel M.D. [email or web address]
[2025-01-06 13:40] VITALS: PULSE 80; O2SAT 91
[2025-01-06 13:42] LABS: Basophils % 0.5 %; Eosinophils # 0.2 10^3/uL (0.0-0.8); Eosinophils % 2.1 %; Hematocrit 44.9 % (36-47); Lymphocytes # 3.6 10^3/uL (0.8-4.8); Mean Corpuscular HGB Conc 32.1 g/dL (30-55); Mean Corpuscular Hemoglobin 29.8 pg (27-33); Mean Platelet Volume 10.8 fL (7.4-10.4); Monocytes # 0.4 10^3/uL (0.2-0.9); Monocytes % 4.6 %; Neutrophils # 3.94 10^3/uL (1.8-7.7); Neutrophils % 48.7 %; Nucleated Red Blood Cells % 0 %; Platelet Count 268 10^3/cmm (157-399); Red Blood Count 4.83 10^6/uL (3.85-5.65); Red Cell Distribution Width 12.7 % (12.1-15.1); White Blood Count 8.09 10^3/uL (3.29-11.43)
[2025-01-06 13:55] LABS: INR 0.81 (0.8-1.2)
[2025-01-06 14:05] LABS: Alanine Aminotransferase 20 U/L (0-33); Albumin Level 4.1 g/dL (3.5-5.2); Alkaline Phosphatase 94 U/L (35-105); Anion Gap 13.7 (5-19); Aspartate Amino Transferase 18 U/L (0-32); Blood Urea Nitrogen 12 mg/dL (6-20); Calcium 9.2 mg/dL (8.5-10.5); Carbon Dioxide 30 mmol/L (22-29); Chloride 100 mmol/L (98-107); Creatinine Clr Calc Pharmacy 119.1108; Glomerular Filtration Rate 102.7 mL/min (90-130); Glucose 105 mg/dL (65-115); Lipase 26 U/L (13-60); Osmolality Calculated 288 mOsm/kg (285-295); Potassium 4.7 mmol/L (3.5-5.1); Sodium 139 mmol/L (136-145); Total Bilirubin 0.3 mg/dL (0.15-1.2); Total Protein 7.1 g/dL (6.6-8.7); Troponin(5th) Baseline < 6 ng/L (0-10)
--- NOTE | 2025-01-06 14:25 | PC.PHAR ---
Pt states she only takes the Amlodipine 10mg as needed. Pt has Atorvastatin 20mg daily 09/16/24 90ds on her external med list but does not take it.
[2025-01-06 14:35] VITALS: BP 151/76
[2025-01-06 15:28] LABS: Troponin 5 2HR < 6.0 ng/L (0-10); Troponin 5 2HR Delta 0 ABS# (0-10)
--- NOTE | 2025-01-06 15:28 | ECG_ITS ---
[facility] Pat Name: Mercy Fermin Department: Room: Gender: Female [employer]: : [id number] Requested By: Emily Matamoros Order Number: [id number] Yair MD: Sergio Michel M.D. Measurements Intervals [place] Rate: 67 P: 52 IN: 178 QRS: 62 QRSD: 93 T: 71 QT: 395 QTc: 417 Interpretive Statements SINUS RHYTHM Compared to ECG 01/06/2025 13:35:37 No significant changes Electronically Signed On 01-06-2025 17:47:12 CDT by Sergio Michel M.D. [email or web address]
[2025-01-06 15:55] VITALS: BP 162/76; PULSE 88; O2SAT 98
== END 2025-01-06 15:56 | disposition home or self-care (01) ==
PROVIDERS: Emergency Provider Emergency Medicine; PCP Family Medicine
DX: R07.9 Chest pain, unspecified (principal); F17.210 Nicotine dependence, cigarettes, uncomplicated; J44.9 Chronic obstructive pulmonary disease, unspecified
CPT/HCPCS: 71045; 80053; 83690; 84484; 85025; 85610; 93005; 99285